=== PATIENT | female | born 1955 | race Caucasian/White ===

== ENCOUNTER 2021-06-19 10:23 | Observation (INO) ==
[2021-06-19 11:29] LABS: Basophils % 0.3 %; Eosinophils # 0.1 K/mcL (0.0-0.6); Eosinophils % 0.7 %; Hematocrit 42.9 % (35.3-44.9); Hemoglobin 13.3 g/dL (11.5-15.4); Immature Granulocytes % 0.5 % (0-4); Lymphocytes # 0.7 K/mcL (0.6-4.6); Lymphocytes % 6.1 %; Mean Corpuscular Hemoglobin 26.8 pg (28.0-33.3); Mean Corpuscular Volume 86.3 fL (83.0-100.0); Mean Platelet Volume 9.6 fL (9.4-12.4); Monocytes # 0.9 K/mcL (0.0-1.3); Monocytes % 8.2 %; Neutrophils # 9.5 K/mcL (1.6-8.9); Platelet Count 425 K/mcL (140-400); Red Blood Count 4.97 M/mcL (3.82-4.97); Red Cell Distribution Width 14.7 % (11.5-14.5); Segmented Neutrophils % 84.2 %; White Blood Count 11.3 K/mcL (4.3-11.1)
[2021-06-19 11:52] LABS: BUN/Creatinine Ratio 23 (6-26); Blood Urea Nitrogen 18 mg/dL (8-23); Carbon Dioxide 31 mEq/L (23-29); Chloride 99 mEq/L (98-107); Glucose 102 mg/dL (70-105); Osmolality,Calculated 294 (280-300); Potassium 3.5 mEq/L (3.5-5.1); Sodium 141 mEq/L (136-145); Troponin I < 0.03 ng/mL (< 0.04); eGFR For African Americans > 60 (> 60); eGFR For Non-African Americans > 60 (> 60)
[2021-06-19] MEDS ORDERED: Isovue-370 500 ML BOTTLE IVP ONE (12:02)
[2021-06-19] MEDS ORDERED: Ondansetron 4 MG/2 ML VIAL IVP PRN (12:34)
[2021-06-19] MEDS ORDERED: Naloxone 0.4 MG/ML INJ IVP PRN (12:34)
[2021-06-19] MEDS ORDERED: Morphine Sulfate 2 MG/ML SYRINGE IVP PRN (12:36)
[2021-06-19] MEDS ORDERED: *HR* LORazepam 2 MG/ML VIAL IVP PRN (12:39)
[2021-06-19] MEDS ORDERED: Gadolinium Contrast Agent (WT Based) IV PRN (14:08)
[2021-06-19] MEDS ORDERED: GADOBUTROL 30 MMOL/30 ML VIAL IVP ONE (16:02)
[2021-06-20 01:34] LABS: Basophils % 0.4 %; Eosinophils # 0.1 K/mcL (0.0-0.6); Eosinophils % 1.1 %; Hematocrit 43.8 % (35.3-44.9); Hemoglobin 14.1 g/dL (11.5-15.4); Immature Granulocytes % 0.4 % (0-4); Lymphocytes # 0.7 K/mcL (0.6-4.6); Lymphocytes % 6.6 %; Mean Corpuscular HGB Conc 32.2 g/dL (31.6-35.5); Mean Corpuscular Hemoglobin 27.7 pg (28.0-33.3); Mean Corpuscular Volume 86.1 fL (83.0-100.0); Monocytes # 1.1 K/mcL (0.0-1.3); Monocytes % 10.6 %; Neutrophils # 8.3 K/mcL (1.6-8.9); Platelet Count 387 K/mcL (140-400); Red Blood Count 5.09 M/mcL (3.82-4.97); Red Cell Distribution Width 14.6 % (11.5-14.5); Segmented Neutrophils % 80.9 %; White Blood Count 10.3 K/mcL (4.3-11.1)
[2021-06-20 01:51] LABS: BUN/Creatinine Ratio 23 (6-26); Blood Urea Nitrogen 15 mg/dL (8-23); Carbon Dioxide 30 mEq/L (23-29); Chloride 100 mEq/L (98-107); Glucose 96 mg/dL (70-105); Osmolality,Calculated 287 (280-300); Potassium 3.7 mEq/L (3.5-5.1); Sodium 138 mEq/L (136-145); eGFR For African Americans > 60 (> 60); eGFR For Non-African Americans > 60 (> 60)
[2021-06-20] MEDS ORDERED: Ipratropium/Albuterol Neb 3 ML IH PRN (07:46)
[2021-06-20] MEDS: lisinopriL 5 MG TABLET PO SCH ×2 (09:27→09:28)
[2021-06-20] MEDS: *HR* LORazepam 2 MG/ML VIAL IVP SCH ×3 (10:24→19:53)
[2021-06-20] MEDS ORDERED: *HR* LORazepam 2 MG/ML VIAL IVP SCH (15:00)
[2021-06-20] MEDS: Acetylcysteine 10% 2 ML INHSOL IH SCH ×2 (16:40→23:35)
[2021-06-20] MEDS: Levalbuterol Neb 1.25 MG/3 ML IH SCH ×3 (20:20→23:35)
[2021-06-20] MEDS ORDERED: Ipratropium/Albuterol Neb 3 ML IH SCH (22:00)
[2021-06-21] MEDS: Levalbuterol Neb 1.25 MG/3 ML IH SCH ×6 (03:38→23:49)
[2021-06-21] MEDS: Acetylcysteine 10% 2 ML INHSOL IH SCH ×4 (03:38→19:29)
[2021-06-21] MEDS: *HR* Enoxaparin 40 MG/0.4 ML SYRINGE SQ SCH (05:35)
[2021-06-21 05:41] LABS: Basophils % 0.4 %; Eosinophils % 0.3 %; Hematocrit 47.7 % (35.3-44.9); Hemoglobin 14.6 g/dL (11.5-15.4); Immature Granulocytes % 0.4 % (0-4); Lymphocytes # 0.5 K/mcL (0.6-4.6); Lymphocytes % 4.8 %; Mean Corpuscular HGB Conc 30.6 g/dL (31.6-35.5); Mean Corpuscular Volume 88.2 fL (83.0-100.0); Mean Platelet Volume 9.7 fL (9.4-12.4); Monocytes # 0.8 K/mcL (0.0-1.3); Monocytes % 7.1 %; Neutrophils # 9.7 K/mcL (1.6-8.9); Platelet Count 324 K/mcL (140-400); Red Blood Count 5.41 M/mcL (3.82-4.97); Red Cell Distribution Width 14.7 % (11.5-14.5); White Blood Count 11.1 K/mcL (4.3-11.1)
[2021-06-21 06:19] LABS: BUN/Creatinine Ratio 28 (6-26); Blood Urea Nitrogen 17 mg/dL (8-23); Calcium 8.8 mg/dL (8.6-10.3); Carbon Dioxide 23 mEq/L (23-29); Chloride 100 mEq/L (98-107); Glucose 103 mg/dL (70-105); Osmolality,Calculated 288 (280-300); Potassium 3.9 mEq/L (3.5-5.1); Sodium 138 mEq/L (136-145); eGFR For African Americans > 60 (> 60); eGFR For Non-African Americans > 60 (> 60)
[2021-06-21] MEDS ORDERED: Furosemide 40 MG/4 ML VIAL IVP ONE (07:17)
[2021-06-21] MEDS: *HR* LORazepam 2 MG/ML VIAL IVP SCH ×3 (08:05→22:01)
[2021-06-21] MEDS: lisinopriL 5 MG TABLET PO SCH (08:06)
[2021-06-22] MEDS: Levalbuterol Neb 1.25 MG/3 ML IH SCH ×3 (03:29→11:10)
[2021-06-22] MEDS: Acetylcysteine 10% 2 ML INHSOL IH SCH ×2 (03:29→07:29)
[2021-06-22] MEDS: *HR* Enoxaparin 40 MG/0.4 ML SYRINGE SQ SCH (05:27)
[2021-06-22 06:43] LABS: Basophils % 0.2 %; Eosinophils # 0.1 K/mcL (0.0-0.6); Eosinophils % 0.6 %; Hematocrit 43.7 % (35.3-44.9); Hemoglobin 13.9 g/dL (11.5-15.4); Immature Granulocytes % 0.3 % (0-4); Lymphocytes # 0.6 K/mcL (0.6-4.6); Lymphocytes % 4.9 %; Mean Corpuscular HGB Conc 31.8 g/dL (31.6-35.5); Mean Corpuscular Hemoglobin 27.9 pg (28.0-33.3); Mean Corpuscular Volume 87.6 fL (83.0-100.0); Mean Platelet Volume 9.8 fL (9.4-12.4); Monocytes # 0.9 K/mcL (0.0-1.3); Platelet Count 398 K/mcL (140-400); Red Blood Count 4.99 M/mcL (3.82-4.97); Red Cell Distribution Width 14.6 % (11.5-14.5); White Blood Count 11.6 K/mcL (4.3-11.1)
[2021-06-22 08:00] LABS: BUN/Creatinine Ratio 24 (6-26); Blood Urea Nitrogen 18 mg/dL (8-23); Calcium 9.5 mg/dL (8.6-10.3); Carbon Dioxide 33 mEq/L (23-29); Chloride 96 mEq/L (98-107); Glucose 105 mg/dL (70-105); Magnesium 2.1 mg/dL (1.6-2.6); Osmolality,Calculated 292 (280-300); Potassium 3.9 mEq/L (3.5-5.1); Sodium 140 mEq/L (136-145); eGFR For African Americans > 60 (> 60); eGFR For Non-African Americans > 60 (> 60)
[2021-06-22] MEDS: *HR* LORazepam 2 MG/ML VIAL IVP SCH (08:45)
[2021-06-22] MEDS: lisinopriL 5 MG TABLET PO SCH (08:45)
[2021-06-22 11:42] VITALS: BP 137/71; PULSE 51; TEMP 97.4; O2SAT 93
== END 2021-06-22 15:32 | disposition home or self-care (01) ==
LOC: EMEROOARM 10:23 → CDU 10:23 → SUATTDRO 16:27 → CDU 17:55 → 3BNU 06-20 13:21
PROVIDERS: ADMIT Student in an Organized Health Care Education/Training Program; ATTEND Internal Medicine